=== PATIENT | male | born 1965 | race Caucasian/White ===

== ENCOUNTER 2017-08-09 14:47 | Emergency (ER) | payer OTHER ==
--- NOTE | 2017-08-09 14:52 | EDPHY ---
H & P Time Seen by Provider: 08/09/17 14:52 HPI/ROS: HPI CHIEF COMPLAINT: RIGHT INDEX FINGER LACERATION HISTORY OF PRESENT ILLNESS: Patient very pleasant 52-year-old male, otherwise healthy his tetanus shot is up-to-date he presents emergency room with a 3 cm horizontally oriented right finger index laceration. His on the distal aspect of his right index finger. He sustained this while opening a drill bit. The drill bit was new. It was not used. His tetanus shot is up-to-date. Denies any other areas of injury. Past Medical History: Denies medical history Past Surgical History: Denies significant surgical history Social History: Denies drugs alcohol tobacco. Family History: Noncontributory ROS REVIEW OF SYSTEMS: A comprehensive 10 point review of systems is otherwise negative aside from elements mentioned in the history of present illness. Exam Constitutional appears well nontoxic no acute distress triage nursing summary reviewed, vital signs reviewed, awake/alert. Eyes normal conjunctivae and sclera, EOMI, PERRLA. HENT normal inspection, atraumatic, moist mucus membranes, no epistaxis, neck supple/ no meningismus, no raccoon eyes. Respiratory clear to auscultation bilaterally, normal breath sounds, no respiratory distress, no wheezing. Cardiovascular rate normal, regular rhythm, no murmur, no edema, distal pulses normal. Gastrointestinal soft, non-tender, no rebound, no guarding, normal bowel sounds, no distension, no pulsatile mass. Genitourinary no CVA tenderness. Musculoskeletal no midline vertebral tenderness, full range of motion, no calf swelling, no tenderness of extremities, no meningismus, good pulses, neurovascularly intact. Skin right index finger: This shows a horizontally oriented right index finger laceration over the distal aspect palmar surface 3 cm in horizontal length. No bony involvement. No foreign bodies visualized. No tendon injury no arterial injury. No significant contamination or dirt. Neurologic awake, alert and oriented x 3, AAOx3, moves all 4 extremities equally, motor intact, sensory intact, CN II-XII intact, normal cerebellar, normal vision, normal speech. Psychiatric normal mood/affect. Heme/Lymph/Immune no lymphadenopathy. Differential Diagnosis: Includes but is not limited to in a particular order finger laceration, soft tissue injury, contusion. Medical Decision Making: Plan for this patient copiously irrigate his wound out and clean it, explored for foreign bodies, and then he will need his laceration repaired closed and splint. Re-evaluation: Laceration Repair Procedure: Verbal Consent was obtained, Under sterile conditions, The patient had lidocaine with epinephrine used approximately 2ccs to local anesthetize the RIGHT FINGER INDEX 3CM HORIZONTAL ALONG PALMAR SURFACE Laceration. The wound was copiously irrigated with sterile fluid, the wound was explored for foreign bodies there were none visualized, the wound was explored with a sterile glove to the base. There are no deep structures involved, including no arterial injury. TWO interrupted 6.O PROLENE Sutures were placed in this patient's laceration. He had good close approximation of the wound edges. He Tolerated this well. Patient understands have sutures removed in 12-14 days. Finger splint for comfort Return emergency room if there is any worsening symptoms questions concerns he understands. Source: Patient - Medical/Surgical History Other PMH: denies - Social History Smoking Status: Never smoked Constitutional: Initial Vital Signs Temperature (C) 36.8 C 08/09/17 14:57 Heart Rate 75 08/09/17 14:57 Respiratory Rate 18 08/09/17 14:57 Blood Pressure 142/89 H 08/09/17 14:57 O2 Sat (%) 96 08/09/17 14:57 O2 Delivery Mode Room Air Allergies/Adverse Reactions: No Known Allergies Allergy (Unverified 08/09/17 14:56) Home Medications: Medication Instructions Recorded Miscellaneous Medical Supply [NO 1 ea [facility] [place] [facility] 08/05/12 HOME MEDS] Departure - Departure Disposition: Home, Routine, Self-Care Clinical Impression: Laceration Condition: Good Instructions: Laceration (ED), Care For Your Stitches (ED) Additional Instructions: 1. Your sutures need to be removed in 12-14 days. 2. Please keep her wound clean, dry and protected and intact. 3. Finger splint for comfort and protection 4. Return emergency room if you have any signs of infection or questions or concerns about your wound. Referrals: NONE *PRIMARY CARE P,. [Primary Care Provider] - As per Instructions
[2017-08-09 14:58] VITALS: BP 142/89
== END 2017-08-09 15:39 | disposition home or self-care (01) ==
LOC: CED 14:47
PROC: 0HQFXZZ Repair Right Hand Skin, External Approach (ICD-10-PCS; principal; 2017-08-09)
DX: S61.210A Laceration without foreign body of right index finger without damage to nail, initial encounter (principal); W31.0XXA Contact with mining and earth-drilling machinery, initial encounter
CPT/HCPCS: L3925